=== PATIENT | male | born 1990 | race African-American/Black ===

== ENCOUNTER 2016-09-21 17:37 | Emergency (ER) | payer MEDICAID, OTHER ==
[~2016-09-21] VITALS: Ht 182.9 cm; Wt 102.0 kg
[2016-09-21] MEDS ORDERED: SODIUM CHLORIDE 0.9% 1,000 ML IV ONE (18:01)
[2016-09-21] MEDS ORDERED: ONDANSETRON HCL 4MG/2ML VIAL IV STA (18:01)
[2016-09-21] MEDS ORDERED: MORPHINE SULFATE 4 MG/ML CPJ (NOT FOR IM USE) IV STA (18:01)
[2016-09-21] MEDS ORDERED: ETOMIDATE 2MG/ML 10ML VIAL IV ONE (19:30)
[2016-09-21 20:00] VITALS: BP 139/76
== END 2016-09-21 22:00 | disposition home or self-care (01) ==
LOC: ER 21:14
DX: S43.085A Other dislocation of left shoulder joint, initial encounter (principal); I10 Essential (primary) hypertension; F12.10 Cannabis abuse, uncomplicated; W01.0XXA Fall on same level from slipping, tripping and stumbling without subsequent striking against object, initial encounter; Y93.61 Activity, american tackle football; Y92.39 Other specified sports and athletic area as the place of occurrence of the external cause
CPT/HCPCS: 23650; 73030; 96361; 96374; 96375; 99152; 99285; J2270; J2405; J3490; Z7610; J7030; L3670

== ENCOUNTER 2017-05-22 17:57 | Emergency (ER) | payer MEDICAID, OTHER ==
[~2017-05-22] VITALS: Ht 182.9 cm; Wt 109.0 kg
[2017-05-22] MEDS ORDERED: SODIUM CHLORIDE 0.9% 1,000 ML IV ONE (22:56)
[2017-05-22] MEDS ORDERED: TETANUS, DIPHTHERIA, PERTUSSIS VAC/PF 0.5ML (>7YR OLD) IM ONE (23:00)
[2017-05-22] MEDS ORDERED: KETOROLAC 60MG/2ML VIAL IM ONE (23:45)
[2017-05-23 05:51] VITALS: BP 112/70
== END 2017-05-23 06:05 | disposition home or self-care (01) ==
LOC: ER 19:03
DX: B35.3 Tinea pedis (principal); R21 Rash and other nonspecific skin eruption; F12.10 Cannabis abuse, uncomplicated
CPT/HCPCS: 90471; 90715; 96360; 96372; 99284; J1885; J7030; Z7610

== ENCOUNTER 2018-01-02 14:56 | Emergency (ER) | payer MEDICAID, OTHER ==
[~2018-01-02] VITALS: Ht 182.9 cm; Wt 105.0 kg
[2018-01-02 15:09] VITALS: BP 123/78
== END 2018-01-02 18:52 | disposition home or self-care (01) ==
LOC: ER 14:56
DX: S29.012A Strain of muscle and tendon of back wall of thorax, initial encounter (principal); F12.10 Cannabis abuse, uncomplicated; V49.49XA Driver injured in collision with other motor vehicles in traffic accident, initial encounter; Y93.89 Activity, other specified; Y92.89 Other specified places as the place of occurrence of the external cause; Y99.8 Other external cause status
CPT/HCPCS: 99284

== ENCOUNTER 2018-12-18 17:17 | Emergency (ER) | payer BC, OTHER ==
[~2018-12-18] VITALS: Ht 182.9 cm; Wt 104.5 kg
[2018-12-18] MEDS ORDERED: DIPHENHYDRAMINE 25MG CAPSULE PO ONE (20:30)
[2018-12-18] MEDS ORDERED: PREDNISONE 20MG TABLET PO ONE (20:30)
[2018-12-18 20:39] VITALS: BP 129/80
== END 2018-12-18 20:43 | disposition home or self-care (01) ==
LOC: ER 17:17
DX: R21 Rash and other nonspecific skin eruption (principal); H57.89 Other specified disorders of eye and adnexa; F12.10 Cannabis abuse, uncomplicated; Z96.651 Presence of right artificial knee joint; Z96.611 Presence of right artificial shoulder joint; Z96.698 Presence of other orthopedic joint implants
CPT/HCPCS: 99283; J7512; Q0163